=== PATIENT | male | born 1985 | race Caucasian/White ===

== ENCOUNTER 2016-12-15 21:37 | Emergency (ER) | payer OTHER ==
[~2016-12-15] VITALS: Ht 172.7 cm; Wt 68.0 kg
[~2016-12-15 21:37] MED LIST: DOXYCYCLINE MO100 MG PO; LOTRIMIN CR1 %/45 GM TOP; METHADONE10 MG/5 M2 PO; NAPROSYN500 M1 PO; SEROQUEL50 M1 PO; SUBOXONE 2 MG-01 FIL SL; SUBOXONE 2 MG-1 EACH SL; SUBOXONE 8 MG-1 EACH SL; SUBOXONE 8 MG-21 FIL SL; SUBOXONE 8 MG-21 TAB SL; XANAX1 M1 PO
[2016-12-15 21:57] VITALS: BP 112/75
--- NOTE | 2016-12-15 21:59 | ED GENERAL ADULT ---
History of Present Illness General Chief Complaint: General Adult Stated Complaint: PT NEED RX REFILL Source: patient Exam Limitations: no limitations Vital Signs & Intake/Output Vital Signs & Intake/Output Vital Signs Date Time Temp Pulse Resp B/P B/P Pulse O2 O2 Flow FiO2 Mean Ox Delivery Rate 12/15 2157 96.4 77 20 112/75 95 Room Air ED Intake and Output 12/16 0000 12/15 1200 Intake Total Output Total Balance Patient 150 lb Weight Weight Reported by Patient Measurement Method Allergies Coded Allergies: No Known Allergies (12/15/16) Reconcile Medications Buprenorphine HCl/Naloxone HCl (Suboxone 8 MG-2 MG Sl Film) 8 MG-2 MG FILM 1 STR SL BID [facility] [id number]...sixty Doxycycline Hyclate 100 MG TABLET 1 TAB PO BID infection Triage Note: TRIAGE: PT TO ER REQUESTING REFILL OF SUBOXONE. STATES RAN OUT OF SAME 2 DAYS AGO. STATES HE IS PRESCRIBED SAME BY DR PRESSLEY. Triage Nurses Notes Reviewed? yes Onset: Gradual Duration: day(s): Timing: recent history Injury Environment: home Severity: mild Modifying Factors: Improves With: medication. Associated Symptoms: "I'm doing well on Suboxone." HPI: 31-year-old gentleman presents with opioid dependence. He is here seeking a refill for Suboxone. He also notes that he has intermittent pain in his testicle with a past several weeks. He states that he is remains sober on the Suboxone. He has not relapsed in many many months. When asked about trying to get into another Suboxone program he states, "it's really hard to get into a Suboxone program. And doing really well when I get my prescription from you." He notes also that he has left intermittent testicular tenderness. "It seems to hurt in the one side of the testicle but not all the time." He notes no penile discharge or dysuria. He states that he was treated for a urinary infection several weeks ago. He states that he is otherwise well and has no other concerns. Past History Travel History Traveled to [place] past 21 day No Medical History Any Pertinent Medical History? see below for history Neurological: SEIZURE A CHILD EENT: NONE Cardiovascular: NONE Respiratory: NONE Gastrointestinal: NONE Hepatic: NONE Renal: NONE Musculoskeletal: NONE Psychiatric: opioid dependence Endocrine: NONE Blood Disorders: NONE Cancer(s): NONE ELECTRIC ARC WELDER/Reproductive: NONE Tetanus Vaccine: 06/21/16 Surgical History Surgical History: N Psychosocial History What is your primary language Citizen Of [place] Tobacco Use: Current Daily Use Daily Tobacco Use Amount/Type: => 5 Cigarettes daily ETOH Use: occasional use Illicit Drug Use: denies illicit drug use Family History Hx Contributory? No Review of Systems Review of Systems Constitutional: Reports: no symptoms. EENTM: Reports: no symptoms. Respiratory: Reports: no symptoms. Cardiovascular: Reports: no symptoms. GI: Reports: no symptoms. Genitourinary: Reports: no symptoms. Musculoskeletal: Reports: no symptoms. Skin: Reports: no symptoms. Neurological/Psychological: Reports: no symptoms. Hematologic/Endocrine: Reports: no symptoms. Immunologic/Allergic: Reports: no symptoms. All Other Systems: Reviewed and Negative Physical Exam Physical Exam General Appearance: well developed/nourished, no apparent distress Head: atraumatic, normal appearance Eyes: Bilateral: normal appearance. Ears, Nose, Throat: normal pharynx, normal ENT inspection, hearing grossly normal Neck: normal inspection, supple, full range of motion Respiratory: normal breath sounds, chest non-tender, no respiratory distress, quiet respiration, lungs clear Cardiovascular: regular rate/rhythm, edema Gastrointestinal: normal bowel sounds, soft, non-tender, no organomegaly Back: normal inspection, normal range of motion Extremities: normal inspection, normal capillary refill, normal range of motion, no edema Neurologic/Psych: no motor/sensory deficits, awake, alert, oriented x 3 Skin: intact, normal color, warm/dry Comments: genitalia... both testes in normal lie... area of tenderness to palpation along epididymis on left. no focal testicular tenderness. no hernia. no penile discharge. Core Measures ACS in differential dx? No CVA/TIA Diagnosis: No Severe Sepsis Present: No Septic Shock Present: No Progress Differential Diagnoses I considered the following diagnoses in my evaluation of the patient: opioid dependence also with epididymitis vs uti vs torsion... pt declines u/s Plan of Care: Orders Procedure Date/time Status URINE DRUG SCREEN FOR ER ONLY 12/15 2158 Complete Laboratory Tests 12/15/161: Urine Opiates Screen < 100.00, Methadone Screen < 40, Barbiturate Screen < 60, Ur Phencyclidine Scrn < 6.00, Amphetamines Screen < 100, U Benzodiazepines Scrn < 85, Urine Cocaine Screen < 50, Urine Cannabis Screen < 5.00 Initial ED EKG: none Departure Departure Disposition: HOME OR SELF CARE Condition: Stable Clinical Impression Primary Impression: Epididymitis Secondary Impressions: Opioid dependence Referrals: PATIENT HAS NO PRIMARY CARE DR (PCP/Family) Departure Forms: Customer Survey General Discharge Information Prescriptions: Current Visit Scripts Buprenorphine HCl/Naloxone HCl (Suboxone 8 MG-2 MG Sl Film) 1 STR SL BID #60 FILM [id number]...sixty Doxycycline Hyclate 1 TAB PO BID #28 TAB Comments 12/15/16, 23:20... discussed at length. Pt has had difficulty getting into a suboxone program. He prefers to follow up with me. On exam, he likely has epididymitis. I discussed with him the risk of testicular torsion. He declines cultures and u/s, stating, "I don't want to stay... I've had this for weeks... I'll follow up with the specialist." Critical Care Note Critical Care Note Critical Care Time: non-applicable
[2016-12-15] MEDS ORDERED: SUBOXONE 8 MG-1 EACH SL (23:03)
[2016-12-15] MEDS ORDERED: DOXYCYCLINE HY100 M4 PO (23:25)
== END 2016-12-15 23:31 ==
LOC: ERH 21:37
DX: N45.1 Epididymitis (principal); F11.20 Opioid dependence, uncomplicated
CPT/HCPCS: 80307